=== PATIENT | male | born 1975 | race Caucasian/White ===

== ENCOUNTER 2017-10-07 13:29 | Emergency (ER) | payer BC, OTHER ==
[~2017-10-07] VITALS: Ht 182.9 cm; Wt 96.3 kg
[2017-10-07 14:25] LABS: BASOPHILS # (AUTO) 0.03 x10^3/uL (0-0.1); BASOPHILS % (AUTO) 1 % (0-1); EOSINOPHILS # (AUTO) 0.21 x10^3/uL (0-0.4); EOSINOPHILS % (AUTO) 3 % (1-7); LYMPHOCYTES # (AUTO) 1.59 x10^3/uL (1-3.4); LYMPHOCYTES % (AUTO) 25 % (22-44); MD NO; MEAN CORPUSCULAR HEMOGLOBIN 32.9 pg (27.5-34.5); MEAN CORPUSCULAR HGB CONC 34.5 g/dL (33.2-36.2); MEAN CORPUSCULAR VOLUME 95.5 fL (81-97); MEAN PLATELET VOLUME 7.8 fL (7.4-10.4); MONOCYTES % (AUTO) 8 % (2-9); NEUTROPHILS # (AUTO) 4.07 x10^3/uL (1.8-6.8); NEUTROPHILS % (AUTO) 64 % (42-75); PLATELET COUNT 248 x10^3/uL (130-400); RED BLOOD COUNT 4.57 x10^6/uL (4.38-5.82); RED CELL DISTRIBUTION WIDTH 12.1 % (9.4-14.8)
[2017-10-07 14:36] LABS: ALBUMIN 3.8 g/dL (3.4-5.0); ANION GAP 7 mmol/L (5-15); CALCIUM 8.9 mg/dL (8.5-10.1); CHLORIDE 109 mmol/L (98-107)
[2017-10-07 14:37] LABS: CREATININE 0.76 mg/dL (0.7-1.3)
[2017-10-07 15:48] LABS: ALBUMIN 3.7 g/dL (3.4-5.0); BILIRUBIN, DIRECT 0.2 mg/dL (0.1-0.2)
[2017-10-07 15:49] LABS: BILIRUBIN,INDIRECT 0.7 mg/dL (0.0-2.0); BILIRUBIN,TOTAL 0.9 mg/dL (0.2-1.0); TOTAL PROTEIN 7.7 g/dL (6.4-8.2)
[2017-10-07 16:53] VITALS: BP 151/104
== END 2017-10-07 16:55 | disposition home or self-care (01) ==
LOC: ED 16:28
DX: R10.84 Generalized abdominal pain (principal); K59.00 Constipation, unspecified; I10 Essential (primary) hypertension; K62.5 Hemorrhage of anus and rectum
CPT/HCPCS: 36415; 74021; 80048; 80076; 82040; 83690; 85025; 93005; 99285

== ENCOUNTER 2018-08-02 21:55 | Emergency (ER) | payer OTHER ==
[~2018-08-02] VITALS: Ht 182.9 cm; Wt 95.4 kg
[2018-08-02 21:59] VITALS: BP 148/90
[2018-08-02 22:34] LABS: BASOPHILS # (AUTO) 0.02 x10^3/uL (0-0.1); BASOPHILS % (AUTO) 0 % (0-1); EOSINOPHILS # (AUTO) 0.23 x10^3/uL (0-0.4); EOSINOPHILS % (AUTO) 3 % (1-7); HCT (SEDRATE) 41.5 % (39.2-51.8); LYMPHOCYTES # (AUTO) 1.81 x10^3/uL (1-3.4); LYMPHOCYTES % (AUTO) 22 % (22-44); MD NO; MEAN CORPUSCULAR HGB CONC 34.9 g/dL (33.2-36.2); MEAN CORPUSCULAR VOLUME 97.4 fL (81-97); MEAN PLATELET VOLUME 7.6 fL (7.4-10.4); MONOCYTES # (AUTO) 0.54 x10^3/uL (0.2-0.8); MONOCYTES % (AUTO) 6 % (2-9); NEUTROPHILS # (AUTO) 5.76 x10^3/uL (1.8-6.8); NEUTROPHILS % (AUTO) 69 % (42-75); PLATELET COUNT 254 x10^3/uL (130-400); RED BLOOD COUNT 4.23 x10^6/uL (4.38-5.82); RED CELL DISTRIBUTION WIDTH 12.3 % (9.4-14.8)
[2018-08-02 22:44] LABS: ALANINE AMINOTRANSFERASE 25 U/L (12-78); ALBUMIN 3.8 g/dL (3.4-5.0); ANION GAP 12 mmol/L (5-15); CALCIUM 8.6 mg/dL (8.5-10.1); CHLORIDE 107 mmol/L (98-107); CREATININE 0.72 mg/dL (0.7-1.3)
[2018-08-02 22:46] LABS: ALKALINE PHOSPHATASE 69 U/L (45-117); BILIRUBIN,TOTAL 0.3 mg/dL (0.2-1.0); TOTAL PROTEIN 7.7 g/dL (6.4-8.2)
== END 2018-08-03 | disposition home or self-care (01) ==
LOC: ED 22:22
DX: S63.522A Sprain of radiocarpal joint of left wrist, initial encounter (principal); I10 Essential (primary) hypertension; X50.9XXA Other and unspecified overexertion or strenuous movements or postures, initial encounter; Y93.89 Activity, other specified; Y92.89 Other specified places as the place of occurrence of the external cause; Y99.8 Other external cause status
CPT/HCPCS: 29125; 36415; 80053; 85025; 85651; 99284

== ENCOUNTER 2019-09-26 19:11 | Emergency (ER) | payer BC, OTHER ==
[~2019-09-26] VITALS: Ht 182.9 cm; Wt 99.2 kg
--- NOTE | 2019-09-26 19:21 | NUR ---
[id number]
[2019-09-26 19:22] VITALS: BP 152/105
[2019-09-26] MEDS ORDERED: MAALOX/HYOSCYAMINE/LIDOCAINE 45 ML BTL PO ONE (19:30)
[2019-09-26 20:06] LABS: BASOPHILS # (AUTO) 0.07 x10^3/uL (0-0.1); BASOPHILS % (AUTO) 1 % (0-1); EOSINOPHILS # (AUTO) 0.16 x10^3/uL (0-0.4); EOSINOPHILS % (AUTO) 2 % (1-7); LYMPHOCYTES # (AUTO) 1.46 x10^3/uL (1-3.4); LYMPHOCYTES % (AUTO) 18 % (22-44); MD NO; MEAN CORPUSCULAR HEMOGLOBIN 34.1 pg (27.5-34.5); MEAN CORPUSCULAR HGB CONC 33.9 g/dL (33.2-36.2); MEAN CORPUSCULAR VOLUME 100.5 fL (81-97); MEAN PLATELET VOLUME 7.6 fL (7.4-10.4); MONOCYTES % (AUTO) 7 % (2-9); NEUTROPHILS % (AUTO) 72 % (42-75); PLATELET COUNT 225 x10^3/uL (130-400); RED BLOOD COUNT 4.43 x10^6/uL (4.38-5.82); RED CELL DISTRIBUTION WIDTH 12.4 % (9.4-14.8)
[2019-09-26 20:17] LABS: ALANINE AMINOTRANSFERASE 37 U/L (12-78); ALBUMIN 3.9 g/dL (3.4-5.0); ANION GAP 8 mmol/L (5-15); CHLORIDE 107 mmol/L (98-107); CREATININE 0.73 mg/dL (0.7-1.3)
[2019-09-26 20:22] LABS: ALKALINE PHOSPHATASE 66 U/L (45-117); BILIRUBIN,TOTAL 0.8 mg/dL (0.2-1.0); TOTAL PROTEIN 7.8 g/dL (6.4-8.2); TROPONIN I < 0.015 ng/mL (0.000-0.045)
== END 2019-09-26 21:44 ==
LOC: ED 20:00
DX: R10.13 Epigastric pain (principal); I51.7 Cardiomegaly
CPT/HCPCS: 36415; 71045; 80053; 80307; 83690; 84484; 85025; 93005; 99284

== ENCOUNTER 2019-10-27 02:15 | Emergency (ER) | payer BC, OTHER ==
[~2019-10-27] VITALS: Ht 182.9 cm; Wt 98.1 kg
--- NOTE | 2019-10-27 03:00 | NUR ---
ASSESSMENT MADE. CHART UP FOR MD TO SEE.
[2019-10-27] MEDS ORDERED: FAMO-79 PO (03:15)
--- NOTE | 2019-10-27 03:50 | NUR ---
SEEN BY BEV. LICSW AT BEDSIDE FOR BLOOD DRAW.
[2019-10-27 03:56] LABS: BASOPHILS # (AUTO) 0.05 x10^3/uL (0-0.1); BASOPHILS % (AUTO) 1 % (0-1); EOSINOPHILS # (AUTO) 0.16 x10^3/uL (0-0.4); EOSINOPHILS % (AUTO) 2 % (1-7); LYMPHOCYTES # (AUTO) 0.76 x10^3/uL (1-3.4); LYMPHOCYTES % (AUTO) 10 % (22-44); MD NO; MEAN CORPUSCULAR HEMOGLOBIN 34.4 pg (27.5-34.5); MEAN CORPUSCULAR HGB CONC 34.1 g/dL (33.2-36.2); MEAN CORPUSCULAR VOLUME 100.8 fL (81-97); MEAN PLATELET VOLUME 7.7 fL (7.4-10.4); MONOCYTES # (AUTO) 0.53 x10^3/uL (0.2-0.8); MONOCYTES % (AUTO) 7 % (2-9); NEUTROPHILS # (AUTO) 6.35 x10^3/uL (1.8-6.8); NEUTROPHILS % (AUTO) 81 % (42-75); PLATELET COUNT 177 x10^3/uL (130-400); RED BLOOD COUNT 4.12 x10^6/uL (4.38-5.82); RED CELL DISTRIBUTION WIDTH 12.2 % (9.4-14.8)
[2019-10-27 04:08] LABS: ALBUMIN 3.8 g/dL (3.4-5.0); ANION GAP 6 mmol/L (5-15); CALCIUM 9.4 mg/dL (8.5-10.1); CHLORIDE 105 mmol/L (98-107)
[2019-10-27 04:13] LABS: CREATININE 0.88 mg/dL (0.7-1.3); TROPONIN I < 0.015 ng/mL (0.000-0.045)
--- NOTE | 2019-10-27 04:27 | NUR ---
PATIENT RESTING COMFORTABLY, NO COMPLAINTS MADE. AWAITING X RAY RESULT.
--- NOTE | 2019-10-27 04:53 | NUR ---
CHART UP FOR MD TO RE-EVAL.
[2019-10-27 05:17] VITALS: BP 131/87
--- NOTE | 2019-10-27 05:22 | NUR ---
RE-EVALUATION DONE. PATIENT DISCHARGED WITH INSTRUCTION. VERBALIZED UNDERTANDING.
== END 2019-10-27 05:25 | disposition home or self-care (01) ==
LOC: ED 03:00
DX: R07.89 Other chest pain (principal); I10 Essential (primary) hypertension
CPT/HCPCS: 36415; 71045; 80048; 82040; 84484; 85025; 93005; 99285

== ENCOUNTER 2020-07-06 23:54 | Emergency (ER) | payer BC, OTHER ==
[~2020-07-06] VITALS: Ht 185.4 cm; Wt 102.0 kg
[~2020-07-06 23:54] MED LIST: FAMO-79 PO
--- NOTE | 2020-07-07 00:29 | NUR ---
PT TO IMAGING.
[2020-07-07] MEDS ORDERED: DIPH,PERTUSS(ACELL),TET VAC/PF 0.5 ML IM-VACC ONE ×2 (00:30→00:51)
[2020-07-07 00:59] VITALS: BP 121/82
[2020-07-07 01:00] LABS: BASOPHILS % (AUTO) 1 % (0-1); EOSINOPHILS % (AUTO) 2 % (1-7); LYMPHOCYTES % (AUTO) 13 % (22-44); MEAN CORPUSCULAR HGB CONC 33.8 g/dL (33.2-36.2); MEAN PLATELET VOLUME 7.4 fL (7.4-10.4); MONOCYTES % (AUTO) 6 % (2-9); NEUTROPHILS % (AUTO) 79 % (42-75); PLATELET COUNT 184 x10^3/uL (130-400); RED BLOOD COUNT 4.24 x10^6/uL (4.38-5.82); RED CELL DISTRIBUTION WIDTH 12.6 % (9.4-14.8)
[2020-07-07 01:01] LABS: MD NO
[2020-07-07 01:11] LABS: ANION GAP 8 mmol/L (5-15); CHLORIDE 109 mmol/L (98-107); CREATININE 0.69 mg/dL (0.7-1.3)
== END 2020-07-07 01:51 | disposition home or self-care (01) ==
LOC: ED 07-07 01:07
DX: T25 Burn and corrosion of ankle and foot (principal); T32.0 Corrosions involving less than 10% of body surface; L03.115 Cellulitis of right lower limb; F10.10 Alcohol abuse, uncomplicated; Z72.9 Problem related to lifestyle, unspecified; Y90.9 Presence of alcohol in blood, level not specified; Y93.89 Activity, other specified; Y92.89 Other specified places as the place of occurrence of the external cause; Y99.0 Civilian activity done for income or pay
CPT/HCPCS: 36415; 80048; 85025; 90471; 90715; 99284

== ENCOUNTER 2020-07-17 01:40 | Emergency (ER) | payer OTHER ==
[~2020-07-17] VITALS: Ht 182.9 cm; Wt 103.0 kg
--- NOTE | 2020-07-17 01:53 | NUR ---
PT CHANGING TO GOWN, ERP TO EVALUATE.
--- NOTE | 2020-07-17 02:03 | NUR ---
WAITING FOR ULTRASOUND
[2020-07-17 03:18] VITALS: BP 135/74
== END 2020-07-17 03:38 | disposition home or self-care (01) ==
LOC: ED 02:09
DX: L03.115 Cellulitis of right lower limb (principal); I10 Essential (primary) hypertension
CPT/HCPCS: 99284

== ENCOUNTER 2020-12-09 19:09 | Emergency (ER) | payer SELFPAY ==
[~2020-12-09] VITALS: Ht 182.9 cm; Wt 98.9 kg
[2020-12-09 19:14] VITALS: BP 148/105
--- NOTE | 2020-12-09 19:52 | NUR ---
PT LYING IN BED CALM AND RECIEVED CLEANING AND DERMABOUND TREATMENT WELL.
== END 2020-12-09 20:00 | disposition home or self-care (01) ==
LOC: ED 19:35
DX: S61.211A Laceration without foreign body of left index finger without damage to nail, initial encounter (principal); F10.10 Alcohol abuse, uncomplicated; Z72.9 Problem related to lifestyle, unspecified; X58.XXXA Exposure to other specified factors, initial encounter; Y93.89 Activity, other specified; Y92.89 Other specified places as the place of occurrence of the external cause; Y99.8 Other external cause status; Y90.0 Blood alcohol level of less than 20 mg/100 ml
CPT/HCPCS: 12041; 99284